=== PATIENT | female | born 1995 | race Caucasian/White ===

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

== ENCOUNTER 2017-02-24 17:50 | Emergency (ER) | payer OTHER ==
[~2017-02-24] VITALS: Ht 162.6 cm; Wt 60.9 kg
[~2017-02-24 17:50] MED LIST changes: +LORA10CA PO
[2017-02-24 17:57] VITALS: BP 123/77; PULSE 86; RESP 17; O2SAT 95
--- NOTE | 2017-02-24 20:49 | ED.REPORT ---
HPI-Syncope Date of Service Feb 24, 2017 ED Provider: Jcarlos Ocampo MD Pt is a 21 y/o female w/ a hx of chronic GI symptoms of unclear etiology presenting to the ED with her mother c/o spinning-sensation dizziness onset 3 days ago. For the past 3 days she has been experiencing spinning sensation dizziness which causes nausea, and left ear pain Her dizziness is exacerbated by head movement. Pt denies fever, chills, head trauma, hematemesis, hearing change. Since 07/15 she has been experiencing intermittently every 2 weeks abdominal pain, nausea, vomiting, diarrhea, and 10 lb weight loss total, of uncertain etiology after multiple workups. Her specialists think she may have Crohns. She finished a course of steroids 3 weeks ago for excessive itching sensation. Nursing Notes Stated Complaint: FAINTING SPELLS,LIGHT HEADED,VOMITING,DIARRHEA Chief Complaint: General Complaint Nursing Notes Reviewed: Yes ([place], Tapru not reconciled) Allergies: Coded Allergies: amoxicillin (Verified Allergy, Severe, VOMITTING, 12/13/16) clavulanic acid (Verified Allergy, Severe, VOMITTING, 12/13/16) azithromycin (Verified Allergy, Intermediate, Rash, 12/13/16) Scheduled Loratadine (Claritin) 10 Mg Capsule 10 MG PO DAILY Scheduled PRN Meclizine (Bonine) 25 Mg Tab.chew 25 MG PO Q6H PRN PRN vertigo Ondansetron ODT (Zofran ODT) 4 Mg Tablet 4 MG PO Q4H PRN PRN For Nausea Promethazine (Promethazine) 25 Mg Tablet 25 MG PO Q6H PRN PRN vertigo or nausea General Time Seen by Provider: 20:51 Chief Complaint Other (dizziness) Hx Obtained From: Patient Arrived By: Walk-in Onset Occurred: 3 days ago Symptom Duration: Intermittent Progression Since Onset: Intermittent Location: : Abdomen Quality: Painful Severity: Current: Mild Severity: Maximum: Moderate Similar Sx Previous: No Past Medical History Past Medical History Abdominal pain, nausea, and vomiting intermittently every 2 weeks since Jun 2017 - been worked up, unclear etiology Past Surgical History Reports: Appendectomy Smoking History Never Smoker Social History Alcohol Use: Denies alcohol use Drug Use: Denies drug use Other Social History: Lives with parents Occupation student Ambulatory Status Independent Review of Systems Constitutional: Denies: Chills, Fever Ears / Nose / Throat: Reports: Earache left, Denies: Hearing loss left Respiratory: Denies: Non-productive cough, Shortness of breath Cardiovascular: Denies: Chest pain, Dyspnea on exertion GI: Reports: Abdominal pain, Diarrhea, Nausea, Vomiting, Denies: Hematemesis Neurologic: Reports: Dizziness, Spinning sensation Complete sys rev & neg: except as marked. Physical Exam Initial Vital Signs Vital Signs (First) Date Time Temp Pulse Resp B/P Pulse Ox O2 Delivery O2 Flow Rate FiO2 02/24/17 17:57 37.1 86 17 123/77 95 Room Air Initial VS: Reviewed, Vital signs normal Head / Eyes: Atraumatic, Normocephalic, PERRL Neck: Supple, Full range of motion Upper Extremities: Vascular intact, Neuro intact, No swelling Skin: Warm, Dry, No cyanosis Psychiatric: Mood/affect normal, Behavior normal, Normal thought content General/Constitutional: Awake, Alert, No acute distress, Well appearing, Cooperative, Not toxic appearing Respiratory / Chest: Breath sounds NL, Breath sounds = bilat, No respiratory distress, No rales, No rhonchi, No wheezing Cardiovascular: Heart rate NL, Regular rhythm, Heart sounds NL, No gallop, No murmurs, No rubs, Cap refill not delayed, Peripheral circulation NL Neurologic: Oriented X3, Speech NL, No motor deficits, No sensory deficits, CN II - XII intact, Cerebellar NL, Memory NL ENT: Atraumatic, Airway patent, Mucous membranes moist, Pharynx NL Left TM wax occluded No hearing loss Interpretation & Diagnostics Lab Results Interpretation Result Diagram: 02/24/17210802/24/172108 Test 02/24/17 20:44 02/24/17 20:46 02/24/17 21:09 Hold Urine Received (Received) Urine Color Yellow (YELLOW) Urine Appearance Clear (CLEAR,HAZY) Urine pH 6.5 (5.0-8.0) Urine Specific Kimball <1.005 (1.003-1.035) Urine Protein Negativemg/dL (NEG,TRACE) Urine Glucose (UA) Negativemg/dL (NEGATIVE) Urine Ketones Negativemg/dL (NEGATIVE) Urine Occult Blood Trace (NEGATIVE) Urine Nitrite Negative (NEGATIVE) Urine Bilirubin Negative (NEGATIVE) Urine Urobilinogen Normalmg/dL (NORMAL) Urine Leukocyte Esterase Negative (NEGATIVE) Urine RBC 0-2/hpf (0-2) Urine WBC 0-5/hpf (0-5) Urine Epithelial Cells Moderate/hpf (NONE-MOD) Urine Crystals None seen (NONE SEEN) Urine Bacteria None/hpf (NONE-FEW) Urine Hyaline Casts None/lpf (NONE) Urine Granular Casts None seen (NONE SEEN) Urine Waxy Casts None seen (NONE SEEN) Urine Red Blood Cell Casts None seen (NONE SEEN) Urine White Blood Cell Casts None seen (NONE SEEN) Urine Mucus None seen (None Seen) Urine Trichomonas None seen (NONE SEEN) Urine Yeast None (NONE SEEN) Urinalysis Comment None Urine Culture Reflexed Not indicated White Blood Count 8.4th/mm3 (3.8-10.1) Red Blood Count 4.15mil/mm3 (3.90-5.20) Hemoglobin 12.6g/dL (12.0-15.6) Hematocrit 36.4% (35.0-46.0) Mean Corpuscular Volume 87.7fL (81-100) Mean Corpuscular Hemoglobin 30.4pg (27.0-35.0) Mean Corpuscular Hemoglobin Concent 34.6% (32.0-37.0) Red Cell Distribution Width 12.3% (12.3-15.4) Platelet Count 314bil/L (150-400) Neutrophils (%) (Auto) 48.7% (40-74) Lymphocytes (%) (Auto) 31.3% (14-46) Monocytes (%) (Auto) 10.7% (4-12) Eosinophils (%) (Auto) 8.6% (0-5) Basophils (%) (Auto) 0.6% (0-3) Sodium Level 139mEq/L (134-144) Potassium Level 3.9mEq/L (3.5-5.2) Chloride Level 104mEq/L (97-108) Carbon Dioxide Level 23mmol/L (18-29) Blood Urea Nitrogen 8mg/dL (6-20) Creatinine 0.57mg/dL (0.57-1.00) Estimat Glomerular Filtration Rate 196mL/min (>59) Glucose Level 101mg/dL (60-99) Calcium Level 9.2mg/dL (8.5-10.1) Total Bilirubin 0.2mg/dL (0.0-1.2) Aspartate Amino Transf (AST/SGOT) 16U/L (0-50) Alanine Aminotransferase (ALT/SGPT) 11U/L (0-32) Alkaline Phosphatase 79U/L (25-150) Total Protein 7.9g/dL (6.4-8.4) Albumin 4.1g/dL (3.4-5.0) Hold Troy Top Tube Received (Received) Lab Results Interpretation: CBC normal CMP normal Re-Eval/Medical Decision Med Decision/Clinical Course This is a 21-year-old female who is had some problems with intermittent abdominal cramping and nausea of unclear etiology since June. This been some diarrhea intermittently as well, the patient had a workup including CT which has been negative today. However the reason the patient came in today as a 3 day history of left ear pain and new onset vertigo. Today she was miserable as a result. On exam she is in no extremist. She has enough cerumen that I cannot fully visualize the TM on the left, but she denies any dullness or obstructive cerumen symptoms. She has no nystagmus or focal deficit. Her abdomen soft nontender. She received meclizine and Phenergan with relief of the vertigo. Presumably she has an otitis media given the left ear pain as well, but she is allergic to amoxicillin and azithromycin-7 and she received a single dose ceftriaxone. She is being discharged with continuing meclizine and when necessary promethazine, routine precautions reviewed. The patient is discharged in good condition. Source of Hx: Old records Re-Evaluation/Progress : Time of Eval: 22:50 Re-Evaluation/Progress Note: Pt rechecked. Informed pt of plan for treatment. Pt understands and agrees with plan for treatment. F/U instructions and RTER warnings given. All questions addressed. Differential Diagnosis: Negative: Abdominal aortic aneurysm, Acute coronary syndrome, Alcohol abuse, Anemia, Anxiety reaction, Autonomic dysfunction, Cerebrovascular accident, Electrolyte disorder, Encephalitis, Hypoglycemia, Intracranial bleed, Myocardial infarction, Vasovagal syncope Counseled Regarding: Diagnosis, Lab results, Need for follow-up, When/why to return to ED Discharge & Departure Impression: Primary Impression: Vertigo Additional Impression: Left otitis media Otitis media type: unspecified Chronicity: unspecified Qualified Code: H66.92 - Otitis media, unspecified, left ear Disposition: Home Discharge Condition All VS Reviewed: Yes Condition: Stable Additional Instructions: 1. Your blood tests were normal. 2. Your symptoms are typical of vertigo, and are likely caused by a left ear infection given your pain. (You have enough wax that I could not fully visualize the eardrum). You received single dose ceftriaxone for the ear infection (so additional antibiotics are not needed.) 3. Take meclizine 25mg up to three times a day as needed for vertigo (the dizziness. 4. If needed, you can also take promethazine 25mg up to every 4 hours, but this medication causes more drowsiness. 5. Move slowly. Absolutely no driving until symptoms resolve. (Symptoms usually improve after ~4-5 days) 6. Return if new, worsening, or uncontrolled symptoms Referrals: Kathy Whitney (PCP) Sienna Attestation Portions of this note were transcribed by Yuan Reid. I, Dr. Ocampo personally performed the history, physical exam and medical decision-making; I reviewed and confirmed the accuracy of the information in the transcribed note. Signed by Sienna Brock, 02/24/17 copies to: Kathy Whitney Matthew F MD Feb 24, 2017 20:49 YUAN REID Feb 24, 2017 20:52
[2017-02-24 20:58] LABS: APPEARANCE,URINE CLEAR (CLEAR,HAZY); COLOR,URINE YELLOW (YELLOW); OCCULT BLOOD,URINE TRACE (NEGATIVE); PH,URINE 6.5 (5.0-8.0); UROBILINOGEN,URINE NORMAL (NORMAL)
[2017-02-24 21:13] LABS: BASOPHILS % (AUTO) 0.6 % (0-3); EOSINOPHILS % (AUTO) 8.6 % (0-5); MONOCYTES % (AUTO) 10.7 % (4-12); Mean Corpuscular Hemoglobin 30.4 pg (27.0-35.0); Mean Corpuscular Volume 87.7 fL (81-100); NEUTROPHILS % (AUTO) 48.7 % (40-74); Platelet Count 314 bil/L (150-400)
[2017-02-24] MEDS ORDERED: Promethazine 25 mg/mL Inj IM ONE (21:15)
[2017-02-24 21:27] VITALS: BP 130/67; PULSE 87; RESP 14; O2SAT 100
[2017-02-24] MEDS ORDERED: cefTRIAXone Inj 1,000 MG, Lidocaine PF 1% Inj 2.1 ML in Syringe 0 EACH IM ONE (21:50)
[2017-02-24] MEDS ORDERED: MECL-114 PO (22:46)
[2017-02-24] MEDS ORDERED: PROM25TA14 PO (22:46)
[2017-02-24 23:09] VITALS: BP 130/66; PULSE 98; RESP 14; O2SAT 99
== END 2017-02-24 23:09 | disposition home or self-care (01) ==
LOC: SED 17:50
DX: R42 Dizziness and giddiness (principal); H66.92 Otitis media, unspecified, left ear; R11.2 Nausea with vomiting, unspecified; R19.7 Diarrhea, unspecified; R10.9 Unspecified abdominal pain; Z88.1 Allergy status to other antibiotic agents; Z88.8 Allergy status to other drugs, medicaments and biological substances
CPT/HCPCS: 36415; 80053; 81000; 81025; 85025; 96372; 99284; J0696; J1200; J2550

== ENCOUNTER 2017-04-01 11:52 | Day surgery (SDC) | payer OTHER ==
[~2017-04-01] VITALS: Ht 162.6 cm; Wt 61.2 kg
[~2017-04-01 11:52] MED LIST changes: +0.9% Sodium Chloride 1,000 ML IV SCH; +DICY10CA56 PO; +HYDR-3605 PO; -LORA10CA PO; +MEDR150D9 IM; +NITR100 PO; +ONDA-53 PO; -ONDA4TAB9 PO; +Sodium Chloride LOK Flush 10 mL Syringe IV PRN; +fentaNYL-PF 50 mCg/mL 2 mL Inj IVPUSH PRN
[2017-04-01 12:26] VITALS: BP 117/75; PULSE 72; O2SAT 98
[2017-04-01 13:40] VITALS: BP 113/83; PULSE 91; RESP 15; O2SAT 100
[2017-04-01 13:50] VITALS: BP 151/83; PULSE 105; RESP 13; O2SAT 99
[2017-04-01 14:00] VITALS: BP 110/75; PULSE 95; RESP 15; O2SAT 99
--- NOTE | 2017-04-01 19:36 | ENDO ---
[address] [address] ENDOSCOPY PROCEDURE PATIENT: JESSICA LOPEZ : 1995 MR#: [id number] ADMIT: 04/01/2017 JOB ID: [id number] DATE OF SERVICE: 04/01/2017 PROCEDURE: Esophagogastroduodenoscopy and biopsy; colonoscopy with biopsy. PREOPERATIVE DIAGNOSIS(ES): 1. Abdominal pain. 2. Abnormal celiac panel. 3. Diarrhea. POSTOPERATIVE DIAGNOSIS(ES): 1. Normal upper endoscopy, status post biopsy. 2. Normal colonoscopy. status post biopsy. ANESTHESIA: Fentanyl 175 mcg and Versed 9 mg IV administered. COMPLICATION: None. BLOOD LOSS: Minimal. DESCRIPTION OF PROCEDURE: After risks and benefits explained to the patient, informed consent was obtained. After anesthesia administered, upper endoscope was inserted in mouth, intubated to the esophagus, stomach, second portion of duodenum. Mucosa carefully examined. After procedure was done, the scope withdrawn and procedure terminated. Colonoscope was inserted from the rectum to the terminal ileum and mucosa carefully examined. Prep of the patient was excellent. After the procedure was done, the scope was withdrawn and the procedure terminated. FINDINGS: Upon inspection of the anus, no masses, ulcers, fissures that were seen. The Z-line located 40 cm from incisors. Upon entering the stomach, the stomach also appeared normal without masses, ulcers, or lesions. Retroflexion was normal. Duodenal bulb, first and second portion were normal. Biopsies taken at duodenum, antrum, body of the stomach. Upon inspection of the anus, no masses, hemorrhoids, ulcers, or fissures that were seen. Throughout the entire examination, there were no polyps, masses, or lesions. Biopsies taken of the terminal ileum and IMPRESSION: Normal upper endoscopy. Normal colonoscopy status post biopsy. RECOMMENDATION: Await pathology results. Follow up in GI clinic as needed.
--- NOTE | 2017-04-05 16:42 | PATH ---
SURGICAL PATHOLOGY Attending Physician:Sebas Beatty MD CASE STATUS: Signed Out PATIENT NAME: JESSICA LOPEZ PID: [id number] : 1995 DATE COLLECTED:04/01/2017 21:11 SPECIMEN: 1: Duodenum, Biopsy 2: Stomach, Antrum, Biopsy 3: Gastric, Biopsy 4: Ileum, Biopsy 5: Colon, Biopsy CLINICAL HISTORY: DIARRHEA, ABDOMINAL PAIN 1). DUODENUM BIOPSY 2). ANTRUM BIOPSY 3). GASTRIC BODY BIOPSY 4). TERMINAL ILEUM BIOPSY 5). RANDOM COLON BIOPSY FINAL DIAGNOSIS: 1.DUODENUM, BIOPSY: DUODENAL MUCOSA WITH MILD PATCHY INCREASE IN INTRAEPITHELIAL LYMPHOCYTES; SEE COMMENT. THE DELICATE VILLOUS ARCHITECTURE IS PRESERVED. Negative for active inflammation, dysplasia, or malignancy. 2.GASTRIC ANTRUM, BIOPSY: GASTRIC ANTRAL MUCOSA WITH CHRONIC GASTRITIS. Negative for Helicobacter organisms by immunohistochemistry. Negative for intestinal metaplasia. Negative for dysplasia and malignancy. 3.GASTRIC BODY, BIOPSY: BODY-TYPE MUCOSA WITH NO DIAGNOSTIC ABNORMALITY. Negative for Helicobacter organisms. Negative for intestinal metaplasia. Negative for dysplasia and malignancy. 4.TERMINAL ILEUM, BIOPSY: SMALL BOWEL MUCOSA WITH NO DIAGNOSTIC ABNORMALITY. Negative for active inflammation, dysplasia, and malignancy. 5.RANDOM COLON, BIOPSY: COLONIC MUCOSA WITH NO DIAGNOSTIC ABNORMALITY. Negative for active, chronic and microscopic colitis. Negative for dysplasia and malignancy. ICD10 R19.7 NOTE: 1. Histologic sections of the duodenum show essentially normal length villi with focally increased intraepithelial lymphocytosis. The differential diagnosis includes partially treated or clinically latent celiac sprue, infectious gastroenteritis, lymphocytic enterocolitis, and other protein allergies. In addition, similar bowel histology can be seen in patients with other autoimmune disorders, idiopathic inflammatory bowel disease, and may be linked to the use of NSAIDS. Correlation with clinical and serological findings is recommended. GROSS DESCRIPTION: The specimen is received in five formalin filled containers labeled with the patient's name. 1). The specimen is labeled "duodenum" and consists of 2 portions of tissue which aggregate to 0.3 x 0.2 x 0.2 CM. The specimen is entirely submitted in cassette 1A. 2). This specimen is labeled "antrum" and consists of 2 portions of tissue which aggregate to 0.3 x 0.3 x 0.2 CM. The specimen is entirely submitted in cassette 2A. 3). The specimen is labeled "gastric body" and consists of 2 portions of tissue which aggregate to 0.3 x 0.2 x 0.2 CM. The specimen is entirely submitted in cassette 3A. 4). The specimen is labeled "TI" and consists of 2 portions of tissue which aggregate to 0.3 x 0.3 x 0.2 CM. The specimen is entirely submitted in cassette 4A. 5). The specimen labeled "random colon" and consists of multiple tiny portions of tissue which aggregate to 0.3 x 0.2 x 0.2 CM. The specimen is entirely submitted in cassette 5A. 04/01/2017UT MICRO DESCRIPTION: 2. An immunohistochemical stain was performed to evaluate for Helicobacter organisms and is negative. A control stain showed appropriate reactivity. This test was developed and its performance characteristics determined by [employer]. It has not been cleared or approved by the [place]. Food and Drug Administration. The FDA has determined that such clearance or approval is not necessary. This test is used for clinical purposes. It should not be regarded as investigational or for research. ICD-9 CODES: CPT CODES: 1: 76800 2: 10623, 00943 3: 77121 4: 58699 5: 45611 Electronically Signed Out Jcarlos Klein MD, Ph.D. [facility] Pathology [facility] [address], [place] [address] Technical component performed at [facility], [address], [place], [address]
== END 2017-04-01 23:59 | disposition home or self-care (01) ==
LOC: END 11:52
PROVIDERS: ATTEND Internal Medicine Gastroenterology
DX: K29.50 Unspecified chronic gastritis without bleeding (principal); R10.30 Lower abdominal pain, unspecified; R89.4 Abnormal immunological findings in specimens from other organs, systems and tissues; R19.7 Diarrhea, unspecified